=== PATIENT | female | born 1940 | race Caucasian/White ===

== ENCOUNTER 2017-04-29 09:35 | Inpatient (IN) | payer MEDICARE ==
[~2017-04-29] VITALS: Ht 172.7 cm; Wt 109.3 kg
[2017-04-29 10:15] VITALS: BP 138/63
[2017-04-29 10:20] LABS: BASOPHIL % 0.4 % (0.0-0.2); EOSINOPHIL # 0.1 10^3/uL (0.0-0.2); EOSINOPHIL % 1.8 % (0.0-5.0); HEMOGLOBIN 12.4 g/dL (12.0-15.0); LYMPHOCYTES # 2.3 10^3/uL (1.0-4.8); LYMPHOCYTES % 33.4 % (24.0-44.0); MEAN CELL HGB 29.5 pg (26-34); MEAN CELL HGB CONCENTRATION 30.4 g/dL (33-37); MEAN CORP VOLUME 96.9 fL (78-100); MEAN PLATELET VOLUME 11.1 fL (7.8-11.0); MONOCYTES # 0.9 10^3/uL (0.3-0.8); MONOCYTES % 12.5 % (5.0-12.0); NEUTROPHIL # 3.5 10^3/uL (1.8-7.7); NEUTROPHILS % 51.8 % (41.0-85.0); RED CELL DISTRIBUTION WIDTH 12.6 % (11.5-14.5); WHITE BLOOD CELL 6.8 10^3/uL (4.5-11.0)
[2017-04-29 10:34] LABS: CALCIUM 9.4 mg/dL (8.4-10.5); CARBON DIOXIDE 27.4 mmol/L (20.0-32)
[2017-04-29] MEDS: NS 1000ML 1,000 ML IV SCH ×2 (12:00→22:47)
--- NOTE | 2017-04-29 12:15 | DIREP ---
PROCEDURE:CHEST 1 VIEW COMPARISON:None. INDICATIONS:CHF FINDINGS: LUNGS/PLEURA:No significant pulmonary parenchymal abnormalities. No effusions. VASCULATURE:Normal. Unremarkable pulmonary vasculature. CARDIAC:Normal. No cardiac silhouette abnormality or cardiomegaly. MEDIASTINUM:Normal. No visible mass or adenopathy. BONES:Normal. No fracture or visible bony lesion. OTHER:Negative. CONCLUSION:Normal examination. Dictated by: Nain Orona MD on 04/29/2017 at 12:14 PM
--- NOTE | 2017-04-29 12:51 | DIREP ---
PROCEDURE:CT HEAD OR BRAIN W/O CONTRAST COMPARISON:None. INDICATIONS:RT SIDE WEAKNESS TECHNIQUE:CT images were created without intravenous contrast. FINDINGS: VENTRICLES:No hydrocephalus. Ex vacuo dilatation of the anterior horn and body of the left lateral ventricle. CEREBRUM:Large area of encephalomalacia involving the left MCA territory primarily involving the left temporal lobe and lateral left frontal parietal convexity. There is localized volume loss consistent with the sequela of chronic infarction. Chronic lacunar infarct is present in the right basal ganglia and right abad radiata. Diminished attenuation involving the periventricular deep white matter of the supratentorial brain consistent with leukoaraiosis. CEREBELLUM:Small chronic lacunar infarcts in both cerebellar hemispheres. BRAINSTEM:Negative. BASAL CISTERNS:Negative. HEMORRHAGE:No MASS LESION:No ACUTE INFARCT:No SKULL:Normal. SINUSES:Normal. OTHER:None CONCLUSION: 1. Left MCA territory encephalomalacia consistent with the sequela of prior infarct. 2. Chronic lacunar infarcts involving the right basal ganglia, right abad radiata, and bilateral cerebellar hemispheres. 3. No acute findings. 4. Mild leukoaraiosis. Dictated by: Valerio Cruz MD on 04/29/2017 at 12:46 PM
[2017-04-29] MEDS ORDERED: LOSA25TA5 PO (13:48)
[2017-04-29] MEDS ORDERED: [UNRECOGNIZED DRUG - CODE] PO (13:48)
[2017-04-29] MEDS ORDERED: ESCI20TA PO (13:48)
[2017-04-29] MEDS ORDERED: ROSU10TA PO (13:48)
[2017-04-29] MEDS ORDERED: MIRT15TA4 PO (13:48)
[2017-04-29] MEDS ORDERED: TRAM50TA PO (13:48)
[2017-04-29] MEDS ORDERED: CYCL10TA2 PO (13:48)
[2017-04-29] MEDS ORDERED: LORA10TA3 PO (13:48)
[2017-04-29] MEDS ORDERED: LEVO75TA6 PO (13:48)
[2017-04-29] MEDS ORDERED: APIX5TAB PO (13:48)
[2017-04-29] MEDS ORDERED: ULTRAM PO PRN (14:00)
[2017-04-29] MEDS ORDERED: DULCOLAX EC TABLET PO PRN (14:00)
--- NOTE | 2017-04-29 14:39 | HPH ---
ADMIT DATE: 04/29/2017 CHIEF COMPLAINT: Altered mental status. HISTORY OF PRESENT ILLNESS: This patient is a 76-year-old woman with a past medical history significant for hypertension, hyperlipidemia, prior CVA with residual deficits, who was admitted to the hospital as a direct admission with report of an acute altered mental status. She has a poor functional status recently. She had a CVA in 2014, was in rehab and actually regained most of her function at that time. She has slowly progressed with worsening disease. She is unable to ambulate without a lot of assistance. She is unable to speak much of the time but at other times she can start a sentence in a normal tone then stops partially through the sentence as if she is having word finding difficulty. She does not smoke. She is able to eat without difficulty according to family except for functional use of her extremities to feed herself. Much of her history is from the family and chart and from me previously seeing the patient because she is unable to speak, although she can nod yes or no to questions. PAST MEDICAL HISTORY: Includes hypertension, hyperlipidemia, prior CVA with residual right side deficits, hypothyroidism. PAST SURGICAL HISTORY: No known recent surgeries. ALLERGIES: SHE HAS A STATED ALLERGY TO ATORVASTATIN, BUT SHE IS ON CRESTOR AT HOME. HOME MEDICATIONS: List includes Crestor 10 mg daily, other medications are not in the system at this time. SOCIAL HISTORY: She lives at home with her . No alcohol, tobacco or illicit drug use history. FAMILY HISTORY: Negative for early coronary artery disease or diabetes. REVIEW OF SYSTEMS: Unable to obtain due to dysarthria, although she denies any pain. PHYSICAL EXAMINATION: VITAL SIGNS: Upon arrival, height 172.7 cm, weight 107.2 kilograms, and BMI 36.0, temperature 97.5, pulse 80, respiratory rate is 18, blood pressure 138/63 and O2 saturation 97% on room air. GENERAL: She is alert, cooperative and pleasant lady. Positive dysarthria. HEENT: Her pupils were equal and reactive. Sclerae is anicteric. Oropharynx, visualized portions clear. Mucous membranes are slightly dry. NECK: Supple, with no lymphadenopathy. HEART: At time of exam was regular rate and rhythm. LUNGS: Actually clear bilaterally. She has some upper respiratory wheezing that sounds more like upper respiratory than lower lung torres with end expiratory wheezing heard bes in upper lung torres. ABDOMEN: Soft. Bowel sounds are present, nontender to palpation. EXTREMITIES: No cyanosis, clubbing. She has bilateral lower extremity edema below the knee that is pitting, also has a small scar on the lateral surface of her left malleolus without signs of surrounding erythema or drainage. 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 On her feet, she has plantar flexion equal strength; on dorsiflexion she has good strength on her left and spastic on the right with tremors and very weak. She does have dysarthria. It is unable to assess if this is worsening, acute on chronic or just chronic. INITIAL LABORATORY DATA: CBC: White count 6.8, hemoglobin 12.4 and platelets 178. Differential: 52% neutrophils, 33% lymphocytes, 12% monocytes. Sodium 139, potassium 4.7, chloride 101, CO2 is 27, BUN 31, creatinine 1.75, glucose 108, calcium is 9.4 and magnesium 2.5, total bilirubin 0.4, AST 16, ALT is 15, alkaline phosphatase 118, proBNP is 448, total protein 8.6, albumin is 4.1. Urinalysis is pending. IMAGING STUDIES: Chest x-ray is negative acute process. CT head was performed which reveals a large left MCA territory encephalomalacia with she has multiple areas of infarcts including lacunar infarcts, right basal ganglia, right abad radiata, bilateral cerebellar hemispheres. Echocardiogram results are pending. ASSESSMENT AND PLAN: The patient is a 76-year-old woman here with acute renal failure with metabolic encephalopathy versus an encephalopathy secondary to progressed acute on chronic CVA with history of hyperlipidemia and hypertension. 1. Neurologic: There are clinical indications of progression or acute stepwise decline from CVA with worsening function. We will continue statin and aspirin. 2. PT, OT and speech therapy evaluation and treatment. 3. We will give some gentle IV fluid hydration. She does have signs of acute renal failure with mild increase in creatinine and BUN but this is unlikely to be the single cause of her altered mental status. 4. We will follow up urinalysis. 5. Appropriate p.r.n. pain and nausea medication. 6. Fall precautions. 7. DVT prophylaxis with SCDs. 8. She does have a small wound on the left lateral malleolus that according to the family sporadically does drain more of a serous fluid, no signs of purulent drainage by history. 9. This plan was discussed with the patient and her . At this point, her is the primary decision maker. He does understand and concur with plans. Time spent on history and physical is 45 minutes. Ryan Ayers MD DR: GM/haleigh JOB# [id number] [email or web address]
--- NOTE | 2017-04-29 14:45 | NUR ---
Bed Assisted patient back to bed x2 assist.
--- NOTE | 2017-04-29 15:45 | NUR ---
Brown Catheter 16 FR brown catheter inserted using strict sterile technique. No s/s of distress noted. Pale yellow urine drained. Secured brown catheter to left leg. Call light within reach.
--- NOTE | 2017-04-29 16:00 | NUR ---
ACUTE REHAB REFERRAL DR. JORDAN ADDRESSED CM WITH REFERRAL FOR PATIENT TO DISCHARGE TO ACUTE REHAB @ [facility]. DR. JORDAN STATED HE HAS ALREADY SPOKE TO PATIENTS FAMILY AND NOTIFIED [facility] REGARDING REFERRAL. CM THEN FAXED PATIENTS CLINICAL INFORMATION TO [facility]UTE [facility] TO ACCOMMODATE FACILITIES ACCEPTANCE/INSURANCE APPROVAL. MICHELLE THEN NOTIFIED CATHIE HIGHTOWER RN CLINICAL LIAISON REGARDING REFERRAL. CATHIE STATED SHE WOULD BE UP TO PATIENTS HOSPITAL ROOM TOMORROW TO VISIT WITH PATIENT A D FAMILY REGARDING [facility]'S ACUTE REHAB SERVICES. CM TO CONTINUE TO FOLLOW.
[2017-04-29 16:56] VITALS: BP 138/62
--- NOTE | 2017-04-29 18:50 | NUR ---
Report Received report from Oumou Clark RN
--- NOTE | 2017-04-29 19:26 | NUR ---
Patient resting in bed with eye open. Resp even and non labored. No s/s of distress noted at this time. Will continue to monitor.Daughter at bedside.
[2017-04-29 20:00] VITALS: BP 126/60
[2017-04-29 20:29] LABS: APPEARANCE,URINE CLEAR (CLEAR); BILIRUBIN,URINE NEGATIVE (NEGATIVE); UA COLOR YELLOW (YELLOW); UROBILINOGEN,URINE NORMAL (NEGATIVE)
[2017-04-29] MEDS: LIPITOR PO SCH (20:32)
[2017-04-29] MEDS: ELIQUIS PO SCH (20:32)
[2017-04-29] MEDS: REMERON PO SCH (20:32)
[2017-04-29] MEDS: CLARITIN PO SCH (20:32)
[2017-04-29] MEDS: FLEXERIL PO PRN (20:33)
[2017-04-29] MEDS ORDERED: ROCEPHIN ONE (20:46)
[2017-04-29] MEDS ORDERED: NS 100ML 100 ML IV ONE (20:47)
[2017-04-29] MEDS: ROCEPHIN 1,000 MG in NS 100ML 100 ML IV SCH (20:58)
[2017-04-30] VITALS: BP 137/64
[2017-04-30 04:23] VITALS: BP 126/67
[2017-04-30 05:46] LABS: BASOPHIL % 0.2 % (0.0-0.2); EOSINOPHIL # 0.1 10^3/uL (0.0-0.2); EOSINOPHIL % 1.9 % (0.0-5.0); HEMOGLOBIN 11.1 g/dL (12.0-15.0); LYMPHOCYTES # 1.7 10^3/uL (1.0-4.8); LYMPHOCYTES % 35.6 % (24.0-44.0); MEAN CELL HGB 29.3 pg (26-34); MEAN CELL HGB CONCENTRATION 30.5 g/dL (33-37); MEAN PLATELET VOLUME 11.4 fL (7.8-11.0); MONOCYTES # 0.5 10^3/uL (0.3-0.8); MONOCYTES % 11.4 % (5.0-12.0); NEUTROPHIL # 2.4 10^3/uL (1.8-7.7); NEUTROPHILS % 50.9 % (41.0-85.0); RED CELL DISTRIBUTION WIDTH 12.7 % (11.5-14.5); WHITE BLOOD CELL 4.8 10^3/uL (4.5-11.0)
[2017-04-30 06:21] LABS: CALCIUM 8.7 mg/dL (8.4-10.5); CARBON DIOXIDE 25.8 mmol/L (20.0-32)
[2017-04-30] MEDS: SYNTHROID PO SCH (06:30)
--- NOTE | 2017-04-30 06:40 | NUR ---
Report Report given to Oumou Clark RN
--- NOTE | 2017-04-30 09:45 | NUR ---
Incontinent Patient incontinent of urine. Azalea SEPULVEDA at bedside for bed bath. Jossie care provided. Linens changed. Will continue to monitor. Call light within reach.
[2017-04-30] MEDS: NS 1000ML 1,000 ML IV SCH ×2 (10:06→20:21)
[2017-04-30] MEDS: ELIQUIS PO SCH ×2 (10:07→20:22)
[2017-04-30] MEDS: CELEXA PO SCH (10:07)
[2017-04-30] MEDS: COZAAR PO SCH (10:07)
[2017-04-30 10:29] VITALS: BP 134/70
--- NOTE | 2017-04-30 11:20 | NUR ---
Physical therapy Physical therapy at bedside
[2017-04-30 12:24] VITALS: BP 132/65
--- NOTE | 2017-04-30 14:10 | NUR ---
Status Patient transferred back to bed x2 assist. Incontinent of urine. Jossie care provided. Pad underneath changed. Will continue to monitor. Call light within reach. Family at bedside
--- NOTE | 2017-04-30 17:02 | NUR ---
Dinner Patient sitting up eating dinner. Assisted patient with tray set up. Patient and family denies further needs at this time. Will continue to monitor. call light within reach. Family at bedside
[2017-04-30 17:34] VITALS: BP 147/71
--- NOTE | 2017-04-30 17:55 | NUR ---
Incontinent Patient incontinent of urine. Jossie care provided. Linens changed. Call light within reach. Family at bedside.
--- NOTE | 2017-04-30 19:02 | NUR ---
Report Received report from Oumou Clark RN
[2017-04-30 20:08] VITALS: BP 147/82
[2017-04-30] MEDS: CLARITIN PO SCH (20:21)
[2017-04-30] MEDS: LIPITOR PO SCH (20:21)
[2017-04-30] MEDS: REMERON PO SCH (20:22)
[2017-04-30] MEDS: ROCEPHIN 1,000 MG in NS 100ML 100 ML IV SCH (20:23)
--- NOTE | 2017-05-01 00:27 | PNH ---
DATE: 04/30/2017 SUBJECTIVE: She has had physical therapy, occupational therapy, and speech therapy. She has an improving mental status. Also, her renal function has improved overnight. She did show some mild improvement with physical therapy. No other acute events overnight. OBJECTIVE: VITAL SIGNS: T-max the last 24 hours is 98.8 degrees Fahrenheit, pulse 72, respiratory rate 18, blood pressure 134/70 mmHg, and O2 saturation 96% on room air. GENERAL: She is alert, in no acute distress at the time of exam. HEENT: Pupils are equal, round, and reactive to light. Sclerae are anicteric. Oropharynx is clear. Mucous membranes are moist. NECK: Supple, no lymphadenopathy. CARDIOVASCULAR: At the time of exam, is regular rate and rhythm. LUNGS: Clear bilaterally, no wheezing. ABDOMEN: Soft. Bowel sounds are present. Nontender to palpation. EXTREMITIES: No cyanosis, clubbing. She has lower extremity edema. The left lower extremity lateral malleolar ulcer does not show any signs of infection. NEUROLOGIC: Unchanged from last night, she still has some focal deficits and some significant dysarthria. LABORATORY DATA: CBC: White count 4.8, hemoglobin 11.1, platelets 146. DIFFERENTIAL: 51% neutrophils, 35% lymphocytes, 11% monocytes. BMP: Sodium 140, potassium 4.6, chloride 107, CO2 26, BUN 27, creatinine 1.61, glucose 101, calcium 8.7, LDL 97, HDL 58. ASSESSMENT AND PLAN: The patient is a 76-year-old woman here with acute metabolic encephalopathy, slowly improving, likely secondary to urinary tract infection versus another [id number] CVA, with improving acute renal failure, with anemia due to chronic disease. 1. We will continue PT, OT, and speech. 2. We will continue her statin at the current dose. We will add full-dose enteric-coated aspirin. 3. Appropriate p.r.n. pain and nausea medication. 4. Continue ceftriaxone IV. Follow up urine culture and susceptibility. 5. Case Management consult for possible acute rehab. This patient has good potential and can improve her functional status, which also will improve her half-way mortality. We will consult Case Management to help with possible placement in an acute rehab. Time spent with the patient on April 30, 2017: 25 minutes Ryan Ayers MD DR: GM/haleigh JOB# [id number]
[2017-05-01 01:02] VITALS: BP 139/67
--- NOTE | 2017-05-01 02:15 | NUR ---
PAtient resting in bed with eyes closed. Resp even and non labored. No s/s of distress noted at this time. Will continue to monitor.
[2017-05-01 04:29] VITALS: BP 134/66
[2017-05-01] MEDS: NS 1000ML 1,000 ML IV SCH ×2 (06:04→14:00)
[2017-05-01] MEDS: SYNTHROID PO SCH (06:04)
--- NOTE | 2017-05-01 07:04 | NUR ---
Report Report given to Sabrina Adames RN
[2017-05-01] MEDS: CELEXA PO SCH (09:27)
[2017-05-01] MEDS: ELIQUIS PO SCH ×2 (09:28→21:31)
[2017-05-01 09:31] VITALS: BP 149/66
[2017-05-01] MEDS: COZAAR PO SCH (09:31)
--- NOTE | 2017-05-01 13:02 | NUR ---
ambulation pt ambulatory with Latrice from physical therapy.
[2017-05-01 13:33] VITALS: BP 140/73
--- NOTE | 2017-05-01 14:14 | NUR ---
Communication status: Dixon ulrich's increased accuracy with yes/no questions when using communication board in room. For example, ask question, then point to and say "yes" or "no" on the board to demonstrate for patient. Dixon ulrich's 90% acc this date with simple questions. Patient able to use pain scale on comm board to indicate pain. Signed: 05/01/17 at 1416 by Esmer Burks MS,ALICIA-ELLEN PEREZ
--- NOTE | 2017-05-01 15:43 | NUR ---
resting back in bed, resting with eyes open. bed in low position, call light in reach.
--- NOTE | 2017-05-01 16:45 | NUR ---
EXPEDITED APPEAL CM/SS RECEIVED PATIENTS EXPEDITED APPEAL FROM [facility]. CM/SS HAD DR. BARAHONA SIGN IT AND THEN CM/SS FAXED IT BACK TO [facility] APPEALS DEPARTMENT. CM THEN NOTIFIED CATHIE DAVIS RN CLINICAL LIAISON WITH [facility] REGARDING FAX AND ADDRESSED IF APPEALS DEPARTMENT WOULD WORK ACUTE CARE REHAB DENIAL CASE OVER THE WEEKEND. CATHIE REPLIED "YES". CM TO CONTINUE TO FOLLOW.
[2017-05-01 17:12] VITALS: BP 123/66
--- NOTE | 2017-05-01 17:20 | PRM.PN ---
Subjective Subjective Date: May 01, 2017 Time: 17:05 Subjective Pt working with therapy; feeding herself, no acute changes VTE VTE Risk Total Score: 3 VTE Risk Score VTE Risk: Score 0-1 = Low Risk (Aggressive mobilization; early ambulation; no VTE prophylaxis required) Score 2: Moderate Risk (Intermittent/Pneumatic Compression Device OR Lovenox/Heparin/Coumadin) Score 3-4: High Risk (Intermittent/Pneumatic Compression Device AND Lovenox/Heparin/Coumadin) Score > or =5: Highest Risk (Intermittent/Pneumatic Compression Device AND Lovenox/Heparin/Coumadin) Antico:Hep/LMWH/Coum/Xarelto: Yes Mechanical device ordered: Yes Review of Systems Constitutional: No: Fever, Chills, Sweats Eyes: No: Pain, Vision change, Conjunctivae inflammation ENT: No: Ear pain, Ear discharge, Nose pain Respiratory: No: Cough, Dry, Shortness of breath Cardiovascular: No: Chest Pain, Palpitations, Orthopnea Gastrointestinal: No: Nausea, Vomiting Musculoskeletal: No: neck pain, shoulder pain, arm pain, back pain Skin: No: Rash, Jaundice, Bruising Neurological: No: Seizures Allergies: Coded Allergies: No Known Allergies (Unverified , 04/29/17) Scheduled Apixaban (Eliquis), 5 MG PO BID, (Reported) Escitalopram Oxalate (Escitalopram Oxalate), 1 TAB PO DAILY, (Reported) Levothyroxine Sodium (Levothyroxine Sodium), 1 TAB PO DAILY, (Reported) Loratadine (Loratadine), 1 TAB PO HS, (Reported) Losartan Potassium (Losartan Potassium), 1 TAB PO DAILY, (Reported) Mirtazapine (Mirtazapine), 1 TAB PO HS, (Reported) Rosuvastatin 10MG (Crestor 10MG), 1 TAB PO DAILY, (Reported) Scheduled PRN Bisacodyl (Dulcolax), 5 MG PO PRN PRN for CONSTIPATION, (Reported) Cyclobenzaprine Hcl (Flexeril), 1 TAB PO TID PRN for PAIN, (Reported) Tramadol Hcl (Tramadol Hcl), 1 TAB PO Q4HR PRN for PAIN, (Reported) Objective Vitals and I/O Vital Sign - Last 24 Hours 04/30/17 04/30/17 05/01/17 05/01/17 17:34 20:08 01:02 02:06 Temp 97.3 97.9 98.2 Pulse 71 75 72 Resp 18 18 18 B/P (MAP) 147/71 (96) 147/82 (103) 139/67 (91) Pulse Ox 98 98 94 O2 Delivery Room Air Room Air Room Air Room Air 05/01/17 05/01/17 05/01/17 05/01/17 04:29 07:23 09:31 09:31 Temp 97.4 98.4 Pulse 72 75 Resp 18 18 B/P (MAP) 134/66 (88) 149/66 149/66 (93) Pulse Ox 94 97 O2 Delivery Room Air Room Air Room Air 05/01/17 05/01/17 13:33 17:12 Temp 98.2 97.9 Pulse 72 79 Resp 18 20 B/P (MAP) 140/73 (95) 123/66 (85) Pulse Ox 95 94 O2 Delivery Room Air General: No acute distress HEENT: Atraumatic, Mucous membr. moist/pink Neck: Supple, No LAD Lungs: Clear to auscultation, Normal air movement Heart: Normal S1, Normal S2 Abdomen: Normal bowel sounds Extremities: No clubbing, No cyanosis Skin: No rashes Medication Reconciliation Scheduled Apixaban (Eliquis), 5 MG PO BID, (Reported) Escitalopram Oxalate (Escitalopram Oxalate), 1 TAB PO DAILY, (Reported) Levothyroxine Sodium (Levothyroxine Sodium), 1 TAB PO DAILY, (Reported) Loratadine (Loratadine), 1 TAB PO HS, (Reported) Losartan Potassium (Losartan Potassium), 1 TAB PO DAILY, (Reported) Mirtazapine (Mirtazapine), 1 TAB PO HS, (Reported) Rosuvastatin 10MG (Crestor 10MG), 1 TAB PO DAILY, (Reported) Scheduled PRN Bisacodyl (Dulcolax), 5 MG PO PRN PRN for CONSTIPATION, (Reported) Cyclobenzaprine Hcl (Flexeril), 1 TAB PO TID PRN for PAIN, (Reported) Tramadol Hcl (Tramadol Hcl), 1 TAB PO Q4HR PRN for PAIN, (Reported) Course Blood Pressure Systolic: 123 Blood Pressure Diastolic: 66 Blood Pressure Mean: 85 Assessment/Plan Assessment/Plan Assessment/Plan 76 yo female with weakness, altered MS, h/o CVA, HTN, UTI - recheck Cr tomorrow - await rehab placement - cont therapy - ob abx for UTI Problems: COY BARAHONA MD May 01, 2017 17:20
--- NOTE | 2017-05-01 17:33 | NUR ---
ambulation THIS NURSE AND STRIPE MARKER ASSISTED PT WITH AMBULATION FROM THE BED TO THE CHAIR. PT WAS A 2 PERSON ASSIST.
--- NOTE | 2017-05-01 18:30 | NUR ---
Report Received report from Sabrina Adames RN
[2017-05-01 20:00] VITALS: BP 129/67
[2017-05-01] MEDS: LIPITOR PO SCH (21:30)
[2017-05-01] MEDS: FLEXERIL PO PRN (21:30)
[2017-05-01] MEDS: REMERON PO SCH (21:31)
[2017-05-01] MEDS: CLARITIN PO SCH (21:31)
[2017-05-01] MEDS: ROCEPHIN 1,000 MG in NS 100ML 100 ML IV SCH (21:32)
--- NOTE | 2017-05-01 22:45 | NUR ---
Incontinent. Patient incontinent of urine. Jossie care provided.
[2017-05-02] VITALS: BP 139/66
--- NOTE | 2017-05-02 00:58 | NUR ---
Patient resting in bed with eyes closed. Resp even and non labored. No s/s of distress noted at this time. Will continue to monitor. Call light within reach.
[2017-05-02 04:00] VITALS: BP 139/78
[2017-05-02] MEDS: NS 1000ML 1,000 ML IV SCH ×3 (05:37→20:00)
[2017-05-02] MEDS: SYNTHROID PO SCH (06:07)
--- NOTE | 2017-05-02 06:32 | NUR ---
Report Report given to Nazario Arreola LVN
[2017-05-02 06:58] LABS: CALCIUM 8.5 mg/dL (8.4-10.5); CARBON DIOXIDE 27.2 mmol/L (20.0-32)
--- NOTE | 2017-05-02 07:15 | NUR ---
REPORT Received report, assumed care for patient.
[2017-05-02] MEDS: CELEXA PO SCH (08:40)
[2017-05-02] MEDS: COZAAR PO SCH (08:41)
[2017-05-02] MEDS: ELIQUIS PO SCH ×2 (08:41→21:22)
--- NOTE | 2017-05-02 09:00 | NUR ---
REPORT RECEIVED FROM AHMET BEAN.
[2017-05-02 12:32] VITALS: BP 143/72
--- NOTE | 2017-05-02 13:41 | NUR ---
PATIENT SITTING UP IN CHAIR. SITTING BESIDE PATIENT. NO DISTRESS NOTED.
--- NOTE | 2017-05-02 14:25 | PRM.PN ---
Subjective Subjective Date: May 02, 2017 Time: 14:15 Subjective no acute changes; eating good; has some contractures of her R hand VTE VTE Risk Total Score: 3 VTE Risk Score VTE Risk: Score 0-1 = Low Risk (Aggressive mobilization; early ambulation; no VTE prophylaxis required) Score 2: Moderate Risk (Intermittent/Pneumatic Compression Device OR Lovenox/Heparin/Coumadin) Score 3-4: High Risk (Intermittent/Pneumatic Compression Device AND Lovenox/Heparin/Coumadin) Score > or =5: Highest Risk (Intermittent/Pneumatic Compression Device AND Lovenox/Heparin/Coumadin) Antico:Hep/LMWH/Coum/Xarelto: Yes Mechanical device ordered: Yes Review of Systems Constitutional: No: Fever, Chills, Sweats Eyes: No: Pain, Vision change, Conjunctivae inflammation ENT: No: Ear pain, Ear discharge, Nose pain Respiratory: No: Cough, Dry, Shortness of breath Cardiovascular: No: Chest Pain, Palpitations, Orthopnea Gastrointestinal: No: Nausea, Vomiting Musculoskeletal: No: neck pain, shoulder pain, arm pain, back pain Skin: No: Rash, Jaundice, Bruising Neurological: No: Confusion, Seizures Allergies: Coded Allergies: No Known Allergies (Unverified , 04/29/17) Scheduled Apixaban (Eliquis), 5 MG PO BID, (Reported) Escitalopram Oxalate (Escitalopram Oxalate), 1 TAB PO DAILY, (Reported) Levothyroxine Sodium (Levothyroxine Sodium), 1 TAB PO DAILY, (Reported) Loratadine (Loratadine), 1 TAB PO HS, (Reported) Losartan Potassium (Losartan Potassium), 1 TAB PO DAILY, (Reported) Mirtazapine (Mirtazapine), 1 TAB PO HS, (Reported) Rosuvastatin 10MG (Crestor 10MG), 1 TAB PO DAILY, (Reported) Scheduled PRN Bisacodyl (Dulcolax), 5 MG PO PRN PRN for CONSTIPATION, (Reported) Cyclobenzaprine Hcl (Flexeril), 1 TAB PO TID PRN for PAIN, (Reported) Tramadol Hcl (Tramadol Hcl), 1 TAB PO Q4HR PRN for PAIN, (Reported) Objective Vitals and I/O Vital Sign - Last 24 Hours 05/01/17 05/01/17 05/01/17 05/02/17 17:12 20:00 22:01 00:00 Temp 97.9 98.5 98.2 Pulse 79 77 76 Resp 20 18 20 B/P (MAP) 123/66 (85) 129/67 (87) 139/66 (90) Pulse Ox 94 99 93 O2 Delivery Room Air Room Air Room Air 05/02/17 05/02/17 05/02/17 05/02/17 04:00 08:41 09:04 12:32 Temp 98.2 96.9 Pulse 75 73 Resp 18 16 B/P (MAP) 139/78 (98) 139/78 143/72 (95) Pulse Ox 92 98 O2 Delivery Room Air Room Air Intake and Output 05/02/17 05/02/17 05/03/17 15:00 23:00 07:00 Intake Total 240 ml Balance 240 ml General: Alert, No acute distress HEENT: Atraumatic, Mucous membr. moist/pink Neck: Supple, No JVD, +2 carotid pulse wo bruit Lungs: Clear to auscultation, Normal air movement Heart: Regular rate, Normal S1, Normal S2 Abdomen: Normal bowel sounds, Soft Extremities: No clubbing, No cyanosis Skin: No rashes Psych/Mental Status: Mood NL Medication Reconciliation Scheduled Apixaban (Eliquis), 5 MG PO BID, (Reported) Escitalopram Oxalate (Escitalopram Oxalate), 1 TAB PO DAILY, (Reported) Levothyroxine Sodium (Levothyroxine Sodium), 1 TAB PO DAILY, (Reported) Loratadine (Loratadine), 1 TAB PO HS, (Reported) Losartan Potassium (Losartan Potassium), 1 TAB PO DAILY, (Reported) Mirtazapine (Mirtazapine), 1 TAB PO HS, (Reported) Rosuvastatin 10MG (Crestor 10MG), 1 TAB PO DAILY, (Reported) Scheduled PRN Bisacodyl (Dulcolax), 5 MG PO PRN PRN for CONSTIPATION, (Reported) Cyclobenzaprine Hcl (Flexeril), 1 TAB PO TID PRN for PAIN, (Reported) Tramadol Hcl (Tramadol Hcl), 1 TAB PO Q4HR PRN for PAIN, (Reported) Course Blood Pressure Systolic: 143 Blood Pressure Diastolic: 72 Blood Pressure Mean: 95 Assessment/Plan Assessment/Plan Assessment/Plan 76 yo female with UTI and resolving acute metabolic encephalopathy, h/o CVA, weakness, HTN - cont therapy - cont IV abx - ARF resolved - follow clinically Problems: COY BARAHONA MD May 02, 2017 14:25
[2017-05-02 16:30] VITALS: BP 157/78
--- NOTE | 2017-05-02 16:30 | NUR ---
PATIENT LYING IN BED. MARY CARE PERFORMED. PATIENT DENIES PAIN. SPLINT PRESENT ON RIGHT ARM. PATIENT GRIMACES AND CRIES OUT WITH MOVEMENT OF RIGHT SHOULDER. PATIENT NODS HEAD NO WHEN ASKED IF EXPERIENCING PAIN AT REST. INCONTINENT OF URINE AND BOWEL. SR UPX2. CALL LIGHT WITHIN REACH AND REINFORCED PUSHING THE RED BUTTON IF NEEDING THE NURSE. PATIENT NODS HEAD YES THAT UNDERSTANDS.
--- NOTE | 2017-05-02 19:09 | NUR ---
REPORT GIVEN TO HUSAM SCHULTZ.
[2017-05-02 21:20] VITALS: BP 168/72
[2017-05-02] MEDS: CLARITIN PO SCH (21:22)
[2017-05-02] MEDS: REMERON PO SCH (21:22)
[2017-05-02] MEDS: LIPITOR PO SCH (21:22)
[2017-05-02] MEDS: ROCEPHIN 1,000 MG in NS 100ML 100 ML IV SCH (21:41)
[2017-05-03 00:40] VITALS: BP 151/78
[2017-05-03 04:30] VITALS: BP 161/76
[2017-05-03] MEDS: SYNTHROID PO SCH (06:03)
--- NOTE | 2017-05-03 06:51 | NUR ---
REPORT REPORT RECEIVED FROM PREVIOUS SHIFT AND ASSUMED CARE OF PT
[2017-05-03] MEDS: ELIQUIS PO SCH ×2 (09:02→20:43)
[2017-05-03] MEDS: COZAAR PO SCH (09:02)
[2017-05-03] MEDS: CELEXA PO SCH (09:02)
[2017-05-03 09:55] VITALS: BP 152/90
--- NOTE | 2017-05-03 10:10 | PRM.PN ---
Subjective Subjective Date: May 03, 2017 Time: 10:00 Subjective no acute changes; BPs are creeping up VTE VTE Risk Total Score: 3 VTE Risk Score VTE Risk: Score 0-1 = Low Risk (Aggressive mobilization; early ambulation; no VTE prophylaxis required) Score 2: Moderate Risk (Intermittent/Pneumatic Compression Device OR Lovenox/Heparin/Coumadin) Score 3-4: High Risk (Intermittent/Pneumatic Compression Device AND Lovenox/Heparin/Coumadin) Score > or =5: Highest Risk (Intermittent/Pneumatic Compression Device AND Lovenox/Heparin/Coumadin) Antico:Hep/LMWH/Coum/Xarelto: Yes Mechanical device ordered: Yes Review of Systems Constitutional: Malaise, No: Fever, Chills, Sweats Eyes: No: Pain, Vision change, Conjunctivae inflammation ENT: No: Ear pain, Ear discharge, Nose pain Respiratory: No: Cough, Dry, Shortness of breath Cardiovascular: No: Chest Pain, Palpitations, Orthopnea Gastrointestinal: No: Nausea, Vomiting Musculoskeletal: No: neck pain, shoulder pain, arm pain, back pain Skin: No: Rash, Jaundice, Bruising Neurological: Weakness, No: Confusion, Seizures Allergies: Coded Allergies: No Known Allergies (Unverified , 04/29/17) Scheduled Apixaban (Eliquis), 5 MG PO BID, (Reported) Escitalopram Oxalate (Escitalopram Oxalate), 1 TAB PO DAILY, (Reported) Levothyroxine Sodium (Levothyroxine Sodium), 1 TAB PO DAILY, (Reported) Loratadine (Loratadine), 1 TAB PO HS, (Reported) Losartan Potassium (Losartan Potassium), 1 TAB PO DAILY, (Reported) Mirtazapine (Mirtazapine), 1 TAB PO HS, (Reported) Rosuvastatin 10MG (Crestor 10MG), 1 TAB PO DAILY, (Reported) Scheduled PRN Bisacodyl (Dulcolax), 5 MG PO PRN PRN for CONSTIPATION, (Reported) Cyclobenzaprine Hcl (Flexeril), 1 TAB PO TID PRN for PAIN, (Reported) Tramadol Hcl (Tramadol Hcl), 1 TAB PO Q4HR PRN for PAIN, (Reported) Objective Vitals and I/O Vital Sign - Last 24 Hours 05/02/17 05/02/17 05/02/17 05/02/17 12:32 16:30 21:20 21:20 Temp 96.9 97.5 97.0 Pulse 73 77 76 Resp 16 16 20 B/P (MAP) 143/72 (95) 157/78 (104) 168/72 (104) Pulse Ox 98 97 76 O2 Delivery Room Air Room Air Room Air 05/03/17 05/03/17 05/03/17 05/03/17 00:40 04:30 09:02 09:06 Temp 97.3 96.7 Pulse 73 75 Resp 18 17 B/P (MAP) 151/78 (102) 161/76 (104) 161/76 Pulse Ox 91 O2 Delivery Room Air Room Air 05/03/17 09:55 Temp 98.9 Pulse 81 Resp 18 B/P (MAP) 152/90 (110) Pulse Ox 95 O2 Delivery Room Air General: No acute distress HEENT: Atraumatic, Mucous membr. moist/pink Neck: Supple Lungs: Clear to auscultation, Normal air movement Heart: Normal S1, Normal S2 Abdomen: Normal bowel sounds, Soft Extremities: No clubbing, No cyanosis Skin: No rashes, No significant lesion Medication Reconciliation Scheduled Apixaban (Eliquis), 5 MG PO BID, (Reported) Escitalopram Oxalate (Escitalopram Oxalate), 1 TAB PO DAILY, (Reported) Levothyroxine Sodium (Levothyroxine Sodium), 1 TAB PO DAILY, (Reported) Loratadine (Loratadine), 1 TAB PO HS, (Reported) Losartan Potassium (Losartan Potassium), 1 TAB PO DAILY, (Reported) Mirtazapine (Mirtazapine), 1 TAB PO HS, (Reported) Rosuvastatin 10MG (Crestor 10MG), 1 TAB PO DAILY, (Reported) Scheduled PRN Bisacodyl (Dulcolax), 5 MG PO PRN PRN for CONSTIPATION, (Reported) Cyclobenzaprine Hcl (Flexeril), 1 TAB PO TID PRN for PAIN, (Reported) Tramadol Hcl (Tramadol Hcl), 1 TAB PO Q4HR PRN for PAIN, (Reported) Course Blood Pressure Systolic: 152 Blood Pressure Diastolic: 90 Blood Pressure Mean: 110 Assessment/Plan Assessment/Plan Assessment/Plan 76 yo female with metabolic encephalopathy, UTI, HTN, weakness - cont IV abx; repeat UA today - recheck labs tomorrow - cont therapy - optimize BP med Problems: COY BARAHONA MD May 03, 2017 10:10
[2017-05-03 13:22] VITALS: BP 149/70
[2017-05-03 15:56] VITALS: BP 161/74
[2017-05-03 16:44] LABS: APPEARANCE,URINE SLIGHTLY CLOUDY (CLEAR); BILIRUBIN,URINE NEGATIVE (NEGATIVE); UA COLOR YELLOW (YELLOW); UROBILINOGEN,URINE NORMAL (NEGATIVE)
--- NOTE | 2017-05-03 18:49 | NUR ---
REPORT REPORT GIVEN TO ONCOMING SHIFT AND CARE RELINQUISHED
[2017-05-03 19:20] VITALS: BP 149/70
[2017-05-03] MEDS: ROCEPHIN 1,000 MG in NS 100ML 100 ML IV SCH (20:42)
[2017-05-03] MEDS: LIPITOR PO SCH (20:42)
[2017-05-03] MEDS: REMERON PO SCH (20:42)
[2017-05-03] MEDS: CLARITIN PO SCH (20:43)
[2017-05-04 00:10] VITALS: BP 175/79
--- NOTE | 2017-05-04 00:25 | NUR ---
Notified Dr. Blanchard of elevated BP 175/79. No new orders received
--- NOTE | 2017-05-04 03:06 | NUR ---
Pt incontinent of urine, karo care per nursing, pt repositioned for comfort
[2017-05-04 04:50] VITALS: BP 158/76
[2017-05-04 05:37] LABS: BASOPHIL % 0.3 % (0.0-0.2); EOSINOPHIL # 0.1 10^3/uL (0.0-0.2); EOSINOPHIL % 1.6 % (0.0-5.0); LYMPHOCYTES # 1.4 10^3/uL (1.0-4.8); LYMPHOCYTES % 21.8 % (24.0-44.0); MEAN CELL HGB CONCENTRATION 30.5 g/dL (33-37); MEAN CORP VOLUME 95.3 fL (78-100); MEAN PLATELET VOLUME 11.1 fL (7.8-11.0); MONOCYTES # 0.7 10^3/uL (0.3-0.8); MONOCYTES % 11.6 % (5.0-12.0); NEUTROPHIL # 4.1 10^3/uL (1.8-7.7); NEUTROPHILS % 64.5 % (41.0-85.0); RED CELL DISTRIBUTION WIDTH 12.7 % (11.5-14.5); WHITE BLOOD CELL 6.4 10^3/uL (4.5-11.0)
[2017-05-04] MEDS: SYNTHROID PO SCH (05:51)
[2017-05-04 06:04] LABS: CALCIUM 8.7 mg/dL (8.4-10.5); CARBON DIOXIDE 24.2 mmol/L (20.0-32)
--- NOTE | 2017-05-04 06:14 | NUR ---
Pt incontinent of urine, brief changed, pt repositioned for comfort, call light in reach
--- NOTE | 2017-05-04 06:31 | NUR ---
Report to Amada
[2017-05-04] MEDS: COZAAR PO SCH (08:33)
[2017-05-04] MEDS: ELIQUIS PO SCH ×2 (08:34→21:00)
[2017-05-04] MEDS: CELEXA PO SCH (08:35)
[2017-05-04 08:43] VITALS: BP 147/67
[2017-05-04 11:38] VITALS: BP 155/83
--- NOTE | 2017-05-04 13:15 | NUR ---
UPDATE/ACUTE REHAB DENIAL DR. BARAHONA NOTIFIED CM AND STATED AFTER SPEAKING WITH PATIENT'S [employer] INSURANCE, [employer] IS DENYING ACUTE CARE REHAB. [employer] STATED THEY WILL APPROVE A SNF, EVEN AFTER DR. BARAHONA STATED HIS CASE AND DISAGREED WITH DENIAL AND [facility]'S MEDICAL DIRECTORS RECOMMENDATIONS. CM MADE A FOLLOW UP VISIT TO PATIENT, AND SON REGARDING [employer]'S INSURANCE DENIAL. CM THEN EDUCATED ON THE DIFFERENCE BETWEEN AN ACUTE CARE REHAB VERSES A SNF FACILITY AND [employer] INSURANCE DENIAL VERSES SNF APPROVAL. PATIENTS FAMILY VOICED UNDERSTANDING WITH CHOICE LETTER PRESENTED, SIGNED AND PLACED INTO PATIENTS CHART. CM THEN FAXED PATIENTS CLINICAL INFORMATION TO [facility] SKILLED CARE PER PATIENTS FAMILY REQUEST AND DUE TO PATIENT BEING THEIR IN THE PAST IN 2014. CM THEN NOTIFIED [facility] FOR [facility] AND [facility] OFFICERCONTACT CENTER ASSISTANT. PENDING INSURANCE APPROVAL @ THIS TIME. CM TO CONTINUE TO FOLLOW.
--- NOTE | 2017-05-04 13:49 | ECHO ---
DATE OF SERVICE: 04/29/2017 INDICATIONS: A 76-year-old lady with symptoms of congestive heart failure. Echocardiographic study was requested to evaluate systolic and diastolic function and any other wall motion abnormality. FINDINGS: 1. Study quality is fair. 2. Underlying rhythm is sinus rhythm. 3. LV function was preserved around 60%-65% with moderate concentric LVH. LV cavity was reduced due to LVH. No wall motion abnormality can be seen. No LVOT obstruction. 4. RV size and EF were normal. 5. Both atria were dilated mildly. 6. Mitral valve study showed no regurgitation. No stenosis, gradient was 2.5 mmHg with normal diastolic function. 7. Aortic valve showed at least moderate aortic regurgitation, no stenosis. The velocity across the aortic valve was 0.7 meter per second, the calculated aortic valve area was 2.3 cm2. 8. No pericardial effusion noted. 9. Unable to accurately calculate PA pressure. 10. Inferior vena cava was suboptimally visualized. IMPRESSION: 1. Preserved EF around 60% with moderate LVH. 2. LV cavity was reduced due to LVH. 3. No wall motion abnormality was noted. No LVOT obstruction. 4. Normal RV size and EF. 5. Moderate dilatation of both atria. 6. Normal diastolic function, no mitral pathology. 7. Moderate aortic regurgitation, no stenosis. 8. Unable to calculate PA pressure. 9. No visible pericardial effusion. 10. IVC was not well visualized. Salud Brizuela MD DR: OFELIA/haleigh JOB# [id number]
--- NOTE | 2017-05-04 14:00 | NUR ---
ANTOINE ACUTE REHAB DENIAL ZULY PIERCE RNLIVESTOCK BROKER WITH ANTOINE NOTIFIED CM WITH PATIENTS DENIAL FOR [facility] ZULY STATED THAT ACCORDING TO THEIR OPTICAL LABORATORY TECHNICIAN ANTOINE WOULD APPROVAL A SNF. THEN NOTIFIED CATHIE DAVIS RN CLINICAL LIAISON REGARDING DENIAL. SHE STATED SHE WOULD GET IN CONTACT WITH HER APPEALS TEAM FOR A EXPEDITED APPEAL. CM WILL CONTINUE TO FOLLOW. Addendum: 05/04/17 at 1523 by Cathy Watkins RN - OLVIN WEINER NOTE NEEDS TO BE DATED ON 05/01/17 @ 1400.
[2017-05-04 15:48] VITALS: BP 124/74
--- NOTE | 2017-05-04 18:41 | NUR ---
REPORT GIVEN TO ONCOMING SHIFT
--- NOTE | 2017-05-04 18:45 | PRM.PN ---
Subjective Subjective Date: May 04, 2017 Time: 18:35 Subjective Pt is more alert and working with therapy VTE VTE Risk Total Score: 3 VTE Risk Score VTE Risk: Score 0-1 = Low Risk (Aggressive mobilization; early ambulation; no VTE prophylaxis required) Score 2: Moderate Risk (Intermittent/Pneumatic Compression Device OR Lovenox/Heparin/Coumadin) Score 3-4: High Risk (Intermittent/Pneumatic Compression Device AND Lovenox/Heparin/Coumadin) Score > or =5: Highest Risk (Intermittent/Pneumatic Compression Device AND Lovenox/Heparin/Coumadin) Antico:Hep/LMWH/Coum/Xarelto: Yes Mechanical device ordered: Yes Review of Systems Constitutional: Weakness, No: Fever, Chills, Sweats Eyes: No: Pain, Vision change, Conjunctivae inflammation ENT: No: Ear pain, Ear discharge, Nose pain Respiratory: No: Cough, Dry, Shortness of breath Cardiovascular: No: Chest Pain, Palpitations, Orthopnea Gastrointestinal: No: Nausea, Vomiting Musculoskeletal: No: neck pain, shoulder pain, arm pain, back pain Skin: No: Rash, Jaundice, Bruising Neurological: Weakness, No: Confusion, Seizures Allergies: Coded Allergies: No Known Allergies (Unverified , 04/29/17) Scheduled Apixaban (Eliquis), 5 MG PO BID, (Reported) Escitalopram Oxalate (Escitalopram Oxalate), 1 TAB PO DAILY, (Reported) Levothyroxine Sodium (Levothyroxine Sodium), 1 TAB PO DAILY, (Reported) Loratadine (Loratadine), 1 TAB PO HS, (Reported) Losartan Potassium (Losartan Potassium), 1 TAB PO DAILY, (Reported) Mirtazapine (Mirtazapine), 1 TAB PO HS, (Reported) Rosuvastatin 10MG (Crestor 10MG), 1 TAB PO DAILY, (Reported) Scheduled PRN Bisacodyl (Dulcolax), 5 MG PO PRN PRN for CONSTIPATION, (Reported) Cyclobenzaprine Hcl (Flexeril), 1 TAB PO TID PRN for PAIN, (Reported) Tramadol Hcl (Tramadol Hcl), 1 TAB PO Q4HR PRN for PAIN, (Reported) Objective Vitals and I/O Vital Sign - Last 24 Hours 05/03/17 05/03/17 05/04/17 05/04/17 19:20 19:20 00:10 04:50 Temp 99.3 98.4 97.5 Pulse 85 78 78 Resp 18 18 18 B/P (MAP) 149/70 (96) 175/79 (111) 158/76 (103) Pulse Ox 92 91 92 O2 Delivery Room Air Room Air Room Air Room Air 05/04/17 05/04/17 05/04/17 05/04/17 08:33 08:39 08:43 11:38 Temp 97.6 96.3 Pulse 90 83 Resp 18 18 B/P (MAP) 158/76 147/67 (93) 155/83 (107) Pulse Ox 93 96 O2 Delivery Room Air Room Air Room Air 05/04/17 15:48 Temp 97.1 Pulse 77 Resp 18 B/P (MAP) 124/74 (91) Pulse Ox 94 O2 Delivery Room Air Intake and Output 05/04/17 05/04/17 05/05/17 15:00 23:00 07:00 Intake Total 1900 ml Balance 1900 ml General: Alert, No acute distress HEENT: Atraumatic, Mucous membr. moist/pink Neck: Supple, No LAD Lungs: Clear to auscultation, Normal air movement Heart: Normal S1, Normal S2 Abdomen: Normal bowel sounds, Soft Extremities: No clubbing, No cyanosis Skin: No breakdown Psych/Mental Status: Mood NL Medication Reconciliation Scheduled Apixaban (Eliquis), 5 MG PO BID, (Reported) Escitalopram Oxalate (Escitalopram Oxalate), 1 TAB PO DAILY, (Reported) Levothyroxine Sodium (Levothyroxine Sodium), 1 TAB PO DAILY, (Reported) Loratadine (Loratadine), 1 TAB PO HS, (Reported) Losartan Potassium (Losartan Potassium), 1 TAB PO DAILY, (Reported) Mirtazapine (Mirtazapine), 1 TAB PO HS, (Reported) Rosuvastatin 10MG (Crestor 10MG), 1 TAB PO DAILY, (Reported) Scheduled PRN Bisacodyl (Dulcolax), 5 MG PO PRN PRN for CONSTIPATION, (Reported) Cyclobenzaprine Hcl (Flexeril), 1 TAB PO TID PRN for PAIN, (Reported) Tramadol Hcl (Tramadol Hcl), 1 TAB PO Q4HR PRN for PAIN, (Reported) Course Blood Pressure Systolic: 124 Blood Pressure Diastolic: 74 Blood Pressure Mean: 91 Assessment/Plan Assessment/Plan Assessment/Plan 76 yo female with resolved metabolic encephalopathy/UTI, weakness, HTN - cont therapy - SNF in [place] tomorrow - cont abx for klebsiella UTI Problems: COY BARAHONA MD May 04, 2017 18:45
[2017-05-04 19:27] VITALS: BP 140/70
[2017-05-04] MEDS: LIPITOR PO SCH (20:59)
[2017-05-04] MEDS: REMERON PO SCH (20:59)
[2017-05-04] MEDS: ROCEPHIN 1,000 MG in NS 100ML 100 ML IV SCH (20:59)
[2017-05-04] MEDS: CLARITIN PO SCH (21:00)
[2017-05-05 05:11] VITALS: BP 126/75
--- NOTE | 2017-05-05 06:30 | NUR ---
Report Report received at 0630 [facility].
[2017-05-05] MEDS: SYNTHROID PO SCH (07:08)
[2017-05-05] MEDS: ELIQUIS PO SCH (08:58)
[2017-05-05] MEDS: CELEXA PO SCH (08:58)
[2017-05-05] MEDS: COZAAR PO SCH (08:58)
--- NOTE | 2017-05-05 09:00 | NUR ---
[facility] SNF APPROVAL MATIAS WEINERSKIAGRAPHERTIN POT OPERATOR NOTIFIED CM WITH PATIENTS INSURANCE APPROVAL INTO [facility] DISCHARGE WITH FAMILY TRANSPORTING. NURSING CAN CALL REPORT ANYTIME @ [phone]. CM NOTIFIED BETSEY GUERRA RN CHARGE NURSE REGARDING PATIENTS APPROVAL.
[2017-05-05] MEDS ORDERED: CEPH-350 PO (11:37)
--- NOTE | 2017-05-05 12:05 | NUR ---
Discharge Pt discharged to SNF. Discharge instructions given to pt . Answered all pt and pt questions. Removed IV. No bleeding, redness, heat, edema, or pain noted. Covered site with cotton ball and band aid. Pt sitting in wheelchair eating lunch. Call light within reach of . Pt will notify staff when pt ready to leave.
--- NOTE | 2017-05-05 13:15 | DSH ---
DATE OF DISCHARGE: 05/05/2017 ADMITTING DIAGNOSES: 1. Altered mental status with metabolic encephalopathy. 2. UTI. 3. Hypertension with history of CVA and weakness. DISCHARGE DIAGNOSES: 1. Klebsiella UTI, resolving. 2. Metabolic encephalopathy/altered mental status, resolving with weakness. 3. History of CVA. HOSPITAL COURSE: The patient is a very pleasant 76-year-old female who came in with altered mental status and very confused and she was feeling very weak. 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 We put her in, she did have a UTI and we started her on IV Rocephin and we had physical therapy, occupational therapy and speech therapy work with her. She was dehydrated when she came in, we give her IV fluids and her renal function has improved. Her mental status has slowly improved throughout each day and she is much improved at this point. She is getting up with therapy and working well with them. Her UTI is improved as well. Her vital signs are stable. We had initially wanted her to go to acute rehab for 3 hours of therapy because she was doing very well with therapy and therapy actually agreed with this; however, her insurance company denied the acute rehab even after I called them and spoke to their director and pleaded the case for her to go to acute rehab. I disagreed with the insurance company's decision; however, they would not reverse their decision. So at this point, older adult social work specialist has found a prison facility in [place] per family's choice for her to go and get the rehab there. So, she will be discharged to that prison facility. Resume speech, occupational and physical therapy. I will put her on Keflex twice a day for 5 more days to complete the course for her UTI and I will see how she will do with therapy over there. Yulia Tirado MD DR: CHASTITY/haleigh JOB# [id number]
== END 2017-05-05 13:11 | DRG 682 ==
LOC: MS 09:36 → EEVIPCON 09:36
PROVIDERS: ADMIT Internal Medicine; ATTEND Pediatrics
DX: N17.9 Acute kidney failure, unspecified (principal); G93.41 Metabolic encephalopathy; B96.1 Klebsiella pneumoniae [K. pneumoniae] as the cause of diseases classified elsewhere; D63.8 Anemia in other chronic diseases classified elsewhere; N39.0 Urinary tract infection, site not specified; E86.0 Dehydration; E78.5 Hyperlipidemia, unspecified; I10 Essential (primary) hypertension; E03.9 Hypothyroidism, unspecified; Z86.73 Personal history of transient ischemic attack (TIA), and cerebral infarction without residual deficits; Z88.8 Allergy status to other drugs, medicaments and biological substances; Z79.899 Other long term (current) drug therapy
CPT/HCPCS: 36415; 70450; 71010; 80048; 80053; 80061; 81000; 83735; 83880; 85025; 87077; 87086; 87186; 92507; 92523; 93307; 97162; 97166; A4338; J0696; J7030; J7050; 97116-GP; 97530-GP; 97535-GO; G8978-CJ; G8979-CI; G8987; G8988; G9162-CM; G9163-CL

== ENCOUNTER → 2020-05-25 | Outpatient (CLI) | payer MEDICARE, OTHER ==
[~2020-05-25] MED LIST: APIX5TAB PO; CEPH-350 PO; CYCL10TA2 PO; ESCI20TA PO; LEVO75TA6 PO; LORA10TA3 PO; LOSA25TA12 PO; MIRT15TA4 PO; ROSU10TA2 PO; TRAM50TA PO; [UNRECOGNIZED DRUG - CODE] PO
[2020-05-25 14:34] LABS: MEAN CORP HGB 28.3 pg (26-34); RED CELL DISTRIBUTION WIDTH 13.6 % (11.5-14.5)
[2020-05-25 15:13] LABS: CALCIUM 9.5 mg/dL (8.4-10.5); CARBON DIOXIDE 27.5 mmol/L (20.0-32)
== END | disposition home or self-care (01) ==
LOC: NPLAB 11:30
PROVIDERS: ATTEND Family Medicine
DX: I63.9 Cerebral infarction, unspecified (principal); E03.9 Hypothyroidism, unspecified; M62.81 Muscle weakness (generalized); E87.6 Hypokalemia; R79.89 Other specified abnormal findings of blood chemistry; I10 Essential (primary) hypertension
CPT/HCPCS: 36415; 80048; 84443; 85027

== ENCOUNTER → 2020-07-20 | Outpatient (CLI) | payer OTHER ==
[~2020-07-20] MED LIST changes: -ESCI20TA PO; +ESCI20TA5 PO
[2020-07-20 15:51] LABS: BASOPHIL % 0.2 % (0.0-0.2); LYMPHOCYTES # 1.73 10^3/uL1 (1.0-4.8); LYMPHOCYTES % 36.4 % (24.0-44.0); MEAN CORP HGB 28.5 pg (26-34); MONOCYTES # 0.4 10^3/uL (0.3-0.8); MONOCYTES % 7.4 % (5.0-12.0); NEUTROPHIL # 2.7 10^3/uL (1.8-7.7); PLATELET COUNT 185 10^3/uL (150-400); RED CELL DISTRIBUTION WIDTH 14.9 % (11.5-14.5)
[2020-07-20 15:58] LABS: CALCIUM 9.3 mg/dL (8.4-10.5); CARBON DIOXIDE 28.2 mmol/L (20.0-32)
== END | disposition home or self-care (01) ==
LOC: NPLAB 15:36
PROVIDERS: ATTEND Family Medicine
DX: U07.1 COVID-19 (principal); I63.9 Cerebral infarction, unspecified; R41.82 Altered mental status, unspecified; I10 Essential (primary) hypertension
CPT/HCPCS: 80048; 85025

== ENCOUNTER → 2021-02-18 | Outpatient (CLI) | payer MEDICARE ==
[~2021-02-18] MED LIST changes: +AMOX1TAB63 PO; +AZIT500T PO; -ESCI20TA5 PO; +ESCI20TA8 PO; +FURO-81 PO; +MIRT-13 PO; -MIRT15TA4 PO; +POTA10CA PO; +VENL150C PO
--- NOTE | 2021-02-18 14:13 | DIREP ---
PROCEDURE:XR BARIUM SWALLOW - MODIFIED COMPARISON:[facility], CR, XR BARIUM SWALLOW - MODIFIED, 04/11/2019, 10:55 AM. INDICATIONS:Dysphagia TECHNIQUE:A comprehensive fluoroscopic examination of swallowing was performed, utilizing a variety of barium consistencies. FINDINGS: ORAL PHASE:Delayed bolus formation. PHARYNGEAL PHASE:Penetration with all consistencies. ASPIRATION:No aspiration. OTHER:Negative. FLUORO TIME: 1.9 minutes CONCLUSION: Penetration with the consistencies. No aspiration. Please refer to same-day speech language pathologist report for detailed description of findings and recommendations. Dictated by: Ryan Quach MD on 02/18/2021 at 02:09 PM
== END | disposition home or self-care (01) ==
LOC: RAD 11:40
PROVIDERS: ATTEND Family Medicine
DX: R63.3 Feeding difficulties (principal); I63.9 Cerebral infarction, unspecified; R13.12 Dysphagia, oropharyngeal phase; J30.9 Allergic rhinitis, unspecified; R47.01 Aphasia; I70.0 Atherosclerosis of aorta; R41.841 Cognitive communication deficit; I10 Essential (primary) hypertension; E78.5 Hyperlipidemia, unspecified; E03.9 Hypothyroidism, unspecified; M62.50 Muscle wasting and atrophy, not elsewhere classified, unspecified site; N28.89 Other specified disorders of kidney and ureter; R41.89 Other symptoms and signs involving cognitive functions and awareness; Z74.1 Need for assistance with personal care; Z86.73 Personal history of transient ischemic attack (TIA), and cerebral infarction without residual deficits; Z79.899 Other long term (current) drug therapy
CPT/HCPCS: 74230; 92611